=== PATIENT | male | born 1980 | race Caucasian/White ===

== ENCOUNTER 2018-01-17 18:41 | Emergency (ER) | payer BC, OTHER ==
[~2018-01-17] VITALS: Ht 180.3 cm; Wt 85.0 kg
[~2018-01-17 18:41] MED LIST: CYM/30 PO; DULO60CA44 PO
[2018-01-17 18:48] VITALS: BP 151/101; PULSE 86; TEMP 37; O2SAT 96; Ht 180.3 cm; Wt 85.0 kg
--- NOTE | 2018-01-17 19:19 | EMERGENCY ROOM VISIT NOTE ---
ED Visit Note First contact with patient: 18:53 CHIEF COMPLAINT: Hand injury HISTORY OF PRESENT ILLNESS: This 37-year-old male patient presented to the emergency department immediately after they injured the right hand when he punched a wall. The patient rates the pain as throbbing and 5/10. The fourth and fifth fingers are slightly tingly he has taken nothing for pain.. He is right-hand dominant. The patient does not have injuries to the wrist. The patient has not had a previous fracture to this hand. REVIEW OF SYSTEMS: A 6 system review of systems was completed with positives and pertinent negatives in the HPI. ALLERGIES: No known drug allergies MEDICATIONS: Personally reviewed PMH: Depression SOCIAL HISTORY: He does not smoke, occasional alcohol use, PHYSICAL EXAM: Vital Signs: Reviewed Nurse's notes, vital signs stable. GENERAL : 37-year-old male, in no acute distress, but appears to be in pain, well- developed, well-nourished. MUSCULOSKELETAL: There is no significant deformity of the right hand. There is edema over the right MCP joint. There is tenderness and swelling over the right fifth MCP joint. . No tenderness of the fingers or wrist. Full range of motion of the wrist. No snuff box tenderness. Radial pulse 2+. NEURO: Alert and oriented to person, place, and time. Normal sensation to light and sharp touch. EMERGENCY DEPARTMENT COURSE: I examined the patient. An x-ray of the right hand was reviewed IMPRESSION: Fracture within the neck of the right fifth metacarpal. Electronically signed by: Jordi Pedro M.D. 01/17/2018 8:51 PM Dictated Date/Time: 01/17/2018 8:50 PM The findings were discussed with the patient. He voiced understanding. The patient was put in an Ortho-Glass ulnar gutter splint. He was given a sling. Pulses were rechecked and intact. Discharge instructions were reviewed, and he was discharged in good condition The patient was discharged home in good condition. DIAGNOSIS: Right boxer's fracture DISCHARGE INSTRUCTIONS: Ice and elevation for 24-48 hrs. Please keep the splint in place. Do not get it wet. Ibuprofen 800 mg every 8 hours [place] 1-2 tabs every 4 hours as needed for severe pain. This may be taken with ibuprofen. Please do not drink alcohol or drive will taking this medication. This medication may cause constipation. Please call the orthopedic doctor's office first thing Friday for a follow-up appointment Do not hesitate to return to the emergency department with any new, worsening or concerning symptoms It was a pleasure participating in your care this evening This chart was completed in part utilizing [employer] Speech Voice Recognition software. Attempts were made to minimize the grammatical errors, random word insertions, pronoun errors and incomplete sentences. Any formal questions or concerns about the content, text or information contained within the body of this dictation should be directly addressed to the provider for clarification.
--- NOTE | 2018-01-17 20:52 | DIAGNOSTIC IMAGING REPORT ---
RIGHT HAND 3 VIEWS HISTORY: R 5th mcp pain ? fx COMPARISON: None. FINDINGS: There is an oblique fracture at the neck of the fifth metacarpal. This demonstrates mild radial displacement and angulation. No dislocation. Soft tissue swelling along the ulnar side of the hand. No radiopaque foreign bodies. IMPRESSION: Fracture within the neck of the right fifth metacarpal. Electronically signed by: Jordi Pedro M.D. 01/17/2018 8:51 PM Dictated Date/Time: 01/17/2018 8:50 PM
[2018-01-17] MEDS ORDERED: HYDR-5688 PO (20:57)
[2018-01-17] MEDS ORDERED: NORCO 5/325MG HOME PACK PO ONE (21:00)
== END 2018-01-17 21:18 | disposition home or self-care (01) ==
LOC: C.EDB 18:42 → C.EDD 21:18
DX: S62.201A Unspecified fracture of first metacarpal bone, right hand, initial encounter for closed fracture (principal); W22.8XXA Striking against or struck by other objects, initial encounter